=== PATIENT | female | born 1980 | race Caucasian/White ===

== ENCOUNTER 2018-04-13 09:55 | Inpatient (IN) | payer OTHER ==
[2018-04-13] MEDS ORDERED: NACL 0.9% 3 ML SYG IV (11:30)
[2018-04-13] MEDS ORDERED: ONDANSETRON 4 MG INJ IV (11:30)
[2018-04-13] MEDS: SOD CHLORIDE 0.9% 1,000 ML IV (11:54)
[2018-04-13] MEDS: ACETAMINOPHEN 325 MG TAB PO (11:55)
[2018-04-13] MEDS ORDERED: hydrALAzine 20 MG INJ IV (13:00)
[2018-04-13] MEDS ORDERED: VANCOMYCIN IV PER PHARMACY XX (13:00)
[2018-04-13] MEDS ORDERED: VANCOMYCIN HCL 1.25 GM in SOD CHLORIDE 0.9% 250 ML IVPB (14:00)
[2018-04-13 14:16] LABS: ADD MAN DIFF? NO
[2018-04-13 14:19] LABS: BASOPHILS % 0.5 % (0.0-2.0); EOSINOPHILS # 0.1 10^3/ul (0.0-0.5); EOSINOPHILS % 1.9 % (0.0-7.0); HEMATOCRIT 34.3 % (37.0-47.0); HEMOGLOBIN 11.4 g/dl (12.0-16.0); LYMPHOCYTES % 16.5 % (15.0-51.0); MEAN CORPUSCULAR HEMOGLOBIN 31.1 pg (29.0-33.0); MEAN CORPUSCULAR HGB CONC 33.2 g/dl (32.0-37.0); MEAN CORPUSCULAR VOLUME 93.7 fl (82.0-101.0); MEAN PLATELET VOLUME 9.8 fl (7.4-10.4); MONOCYTE # 0.5 10^3/ul (0.3-0.9); MONOCYTES % 8.7 % (0.0-11.0); NEUTROPHIL # 4.2 10^3/ul (1.6-7.5); NEUTROPHILS % 72.1 % (39.0-77.0); PLATELET COUNT 284 10^3/UL (140-415); RED BLOOD COUNT 3.66 10^6/ul (4.20-5.40); RED CELL DISTRIBUTION WIDTH 12.5 % (11.5-14.5)
[2018-04-13 14:19] LABS: WHITE BLOOD COUNT 5.9 10^3/ul (4.8-10.8)
[2018-04-13 14:27] LABS: HEMOGLOBIN A1C 5.1 % (0-5.9)
[2018-04-13] MEDS: CEFTRIAXONE 1 GM/50 ML (PMX) 50 ML IVPB (14:27)
[2018-04-13 14:46] LABS: ALANINE AMINOTRANSFERASE 31 IU/L (13-69); ALBUMIN 3.3 g/dl (3.3-4.9); ALBUMIN/GLOBULIN RATIO 0.94; ALKALINE PHOSPHATASE 72 IU/L (42-121); ANION GAP 13 (5-13); ASPARTATE AMINO TRANSFERASE 21 IU/L (15-46); BILIRUBIN,INDIRECT 0.1 mg/dl (0-1.1); BILIRUBIN,TOTAL 0.1 mg/dl (0.2-1.3); BLOOD UREA NITROGEN 7 mg/dl (7-20); CALCIUM 8.6 mg/dl (8.4-10.2); CARBON DIOXIDE 24 mmol/L (21-31); CHLORIDE 103 mmol/L (97-110); CREATININE 0.63 mg/dl (0.44-1.00); Estimated GFR > 60 mL/min (>60); GLUCOSE 120 mg/dl (70-220); MAGNESIUM 2.1 mg/dl (1.7-2.5); PHOSPHORUS 3.3 mg/dl (2.5-4.9); POTASSIUM 3.7 mmol/L (3.5-5.1); SODIUM 140 mmol/L (135-144); TOTAL PROTEIN 6.8 g/dl (6.1-8.1)
[2018-04-13 15:17] LABS: C-REACTIVE PROTEIN 7.5 mg/dl (0.0-0.9)
[2018-04-13 15:30] LABS: ERYTHROCYTE SEDIMENTATION RATE 30 mm/Hr (0-20)
[2018-04-13] MEDS ORDERED: VANCOMYCIN 1 GM 250 ML IVPB (16:00)
[2018-04-13] MEDS: VANCOMYCIN HCL 1.25 GM in SOD CHLORIDE 0.9% 250 ML IVPB (16:20)
[2018-04-13] MEDS: HYDROCODONE/APAP (5/325) TAB PO (18:29)
[2018-04-13] MEDS: morphine 2 MG INJ IV (23:11)
[2018-04-14] MEDS: SOD CHLORIDE 0.9% 1,000 ML IV ×2 (00:41→07:30)
[2018-04-14] MEDS: VANCOMYCIN 1 GM 250 ML IVPB ×2 (04:15→17:00)
[2018-04-14] MEDS: HYDROCODONE/APAP (5/325) TAB PO ×2 (05:57→14:16)
[2018-04-14 06:15] LABS: ADD MAN DIFF? NO
[2018-04-14 06:26] LABS: WHITE BLOOD COUNT 5.4 10^3/ul (4.8-10.8)
[2018-04-14 06:26] LABS: BASOPHILS % 0.6 % (0.0-2.0); EOSINOPHILS # 0.2 10^3/ul (0.0-0.5); EOSINOPHILS % 2.8 % (0.0-7.0); HEMATOCRIT 35.7 % (37.0-47.0); HEMOGLOBIN 11.6 g/dl (12.0-16.0); LYMPHOCYTES # 1.5 10^3/ul (0.8-2.9); LYMPHOCYTES % 28.3 % (15.0-51.0); MEAN CORPUSCULAR HEMOGLOBIN 30.9 pg (29.0-33.0); MEAN CORPUSCULAR HGB CONC 32.5 g/dl (32.0-37.0); MEAN CORPUSCULAR VOLUME 95.2 fl (82.0-101.0); MEAN PLATELET VOLUME 9.5 fl (7.4-10.4); MONOCYTE # 0.6 10^3/ul (0.3-0.9); MONOCYTES % 10.7 % (0.0-11.0); NEUTROPHIL # 3.1 10^3/ul (1.6-7.5); NEUTROPHILS % 57.2 % (39.0-77.0); PLATELET COUNT 304 10^3/UL (140-415); RED BLOOD COUNT 3.75 10^6/ul (4.20-5.40); RED CELL DISTRIBUTION WIDTH 12.4 % (11.5-14.5)
[2018-04-14 06:45] LABS: CHOL/HDL RATIO 4.2 RATIO; CHOLESTEROL 122 mg/dl (100-200); HDL CHOLESTEROL 29 mg/dl (34-88); LDL CHOLESTEROL,CALCULATED 77 mg/dl; MAGNESIUM 2.1 mg/dl (1.7-2.5); TRIGLYCERIDES 82 mg/dl (0-149)
[2018-04-14 06:45] LABS: PHOSPHORUS 3.6 mg/dl (2.5-4.9)
[2018-04-14 06:48] LABS: ALANINE AMINOTRANSFERASE 30 IU/L (13-69); ALBUMIN 3.2 g/dl (3.3-4.9); ALBUMIN/GLOBULIN RATIO 0.96; ALKALINE PHOSPHATASE 75 IU/L (42-121); ANION GAP 7 (5-13); ASPARTATE AMINO TRANSFERASE 21 IU/L (15-46); BILIRUBIN,INDIRECT 0.1 mg/dl (0-1.1); BILIRUBIN,TOTAL 0.1 mg/dl (0.2-1.3); BLOOD UREA NITROGEN 5 mg/dl (7-20); CALCIUM 8.7 mg/dl (8.4-10.2); CARBON DIOXIDE 26 mmol/L (21-31); CHLORIDE 107 mmol/L (97-110); CREATININE 0.56 mg/dl (0.44-1.00); Estimated GFR > 60 mL/min (>60); GLUCOSE 94 mg/dl (70-220); POTASSIUM 4.2 mmol/L (3.5-5.1); SODIUM 140 mmol/L (135-144); TOTAL PROTEIN 6.5 g/dl (6.1-8.1)
[2018-04-14] MEDS: morphine 2 MG INJ IV ×2 (11:37→21:55)
[2018-04-14] MEDS: CEFTRIAXONE 1 GM/50 ML (PMX) 50 ML IVPB (12:39)
[2018-04-14] MEDS ORDERED: KETOROLAC 15 MG INJ IV (23:00)
[2018-04-15 04:07] LABS: VANCOMYCIN,TROUGH 5.8 ug/ml (10.0-20.0)
[2018-04-15] MEDS: VANCOMYCIN 1 GM 250 ML IVPB ×3 (04:18→20:24)
[2018-04-15 06:56] LABS: ADD MAN DIFF? NO
[2018-04-15 07:04] LABS: WHITE BLOOD COUNT 6.4 10^3/ul (4.8-10.8)
[2018-04-15 07:04] LABS: BASOPHILS % 0.6 % (0.0-2.0); EOSINOPHILS # 0.2 10^3/ul (0.0-0.5); EOSINOPHILS % 3.6 % (0.0-7.0); HEMATOCRIT 38.4 % (37.0-47.0); LYMPHOCYTES # 1.6 10^3/ul (0.8-2.9); LYMPHOCYTES % 25.6 % (15.0-51.0); MEAN CORPUSCULAR HEMOGLOBIN 31.6 pg (29.0-33.0); MEAN CORPUSCULAR HGB CONC 33.9 g/dl (32.0-37.0); MEAN CORPUSCULAR VOLUME 93.4 fl (82.0-101.0); MEAN PLATELET VOLUME 9.6 fl (7.4-10.4); MONOCYTE # 0.7 10^3/ul (0.3-0.9); MONOCYTES % 10.2 % (0.0-11.0); NEUTROPHIL # 3.8 10^3/ul (1.6-7.5); NEUTROPHILS % 59.2 % (39.0-77.0); PLATELET COUNT 388 10^3/UL (140-415); RED BLOOD COUNT 4.11 10^6/ul (4.20-5.40); RED CELL DISTRIBUTION WIDTH 12.2 % (11.5-14.5)
[2018-04-15 07:43] LABS: PHOSPHORUS 4.2 mg/dl (2.5-4.9)
[2018-04-15 07:43] LABS: C-REACTIVE PROTEIN 4.9 mg/dl (0.0-0.9); MAGNESIUM 2.1 mg/dl (1.7-2.5)
[2018-04-15 07:46] LABS: ANION GAP 6 (5-13); BLOOD UREA NITROGEN 8 mg/dl (7-20); CALCIUM 9.3 mg/dl (8.4-10.2); CARBON DIOXIDE 30 mmol/L (21-31); CHLORIDE 103 mmol/L (97-110); CREATININE 0.58 mg/dl (0.44-1.00); Estimated GFR > 60 mL/min (>60); GLUCOSE 97 mg/dl (70-220); POTASSIUM 4.3 mmol/L (3.5-5.1); SODIUM 139 mmol/L (135-144)
[2018-04-15 08:05] LABS: ERYTHROCYTE SEDIMENTATION RATE 60 mm/Hr (0-20)
[2018-04-15 12:43] LABS: HAAIG REFLEX REFLEX FILED
[2018-04-15] MEDS: CEFTRIAXONE 1 GM/50 ML (PMX) 50 ML IVPB (14:22)
[2018-04-15 14:49] LABS: HEPATITIS B SURFACE ANTIGEN NEGATIVE (NEGATIVE)
[2018-04-15 15:07] LABS: HEPATITIS B CORE ANTIBODY NEGATIVE (NEGATIVE); HIV 1&2 ANTIBODY NEGATIVE (NEGATIVE)
[2018-04-15] MEDS: ENOXAPARIN 40 MG/0.4 ML SYG SC (15:10)
[2018-04-15 15:20] LABS: HEPATITIS C VIRAL ANTIBODY REACTIVE (NEGATIVE)
[2018-04-15] MEDS: morphine 2 MG INJ IV (20:24)
[2018-04-16] MEDS: morphine 2 MG INJ IV (01:14)
[2018-04-16] MEDS: VANCOMYCIN 1 GM 250 ML IVPB ×2 (04:20→12:10)
[2018-04-16] MEDS: ENOXAPARIN 40 MG/0.4 ML SYG SC (08:54)
[2018-04-16 09:16] LABS: ERYTHROCYTE SEDIMENTATION RATE 50 mm/Hr (0-20)
[2018-04-16 11:48] LABS: VANCOMYCIN,TROUGH 15.6 ug/ml (10.0-20.0)
[2018-04-16] MEDS: CEFTRIAXONE 1 GM/50 ML (PMX) 50 ML IVPB (13:00)
== END 2018-04-16 14:35 | disposition home or self-care (01) | DRG 603 ==
LOC: 5EC 09:55
DX: L03.317 Cellulitis of buttock (principal); K76.6 Portal hypertension; K74.60 Unspecified cirrhosis of liver; I10 Essential (primary) hypertension; F17.200 Nicotine dependence, unspecified, uncomplicated; E53.8 Deficiency of other specified B group vitamins; F17.210 Nicotine dependence, cigarettes, uncomplicated; B18.2 Chronic viral hepatitis C; Z98.82 Breast implant status; Z87.11 Personal history of peptic ulcer disease
CPT/HCPCS: 80048; 80053; 80061; 80202; 82607; 83036; 83735; 84100; 84703; 85025; 85651; 86140; 86703; 86704; 86709; 86803; 87040; 87081; 87340; 97161